=== PATIENT | female | born 1995 | race Caucasian/White ===

== ENCOUNTER 2019-01-07 15:08 | Emergency (ER) | payer BC ==
[2019-01-07 15:20] VITALS: BP 121/73
--- NOTE | 2019-01-07 15:29 | UC ---
Ear Complaint HPI - HPI Summary HPI Summary: patient reports 2-3 day history fullness in R ear and dizziness, especially when closes eyes - feels like spinning no headache or recent illness, no sinus pressure (except normal allergy symps) - History of Current Complaint Chief Complaint: UCEar Stated Complaint: EAR PAIN Time Seen by Provider: 01/07/19 15:20 Hx Obtained From: Patient Hx Last Menstrual Period: today ?: No Onset/Duration: Gradual Onset Pain Intensity: 0 Aggravating Factors: Other - head movement, closing eyes Alleviating Factors: Nothing Associated Signs/Symptoms: Negative: Discharge, Hearing Loss, Foreign Body Sensation, Trauma to Ear, URI Symptoms - Allergies/Home Medications Allergies/Adverse Reactions: Allergies Allergy/AdvReac Type Severity Reaction Status Date / Time tramadol Allergy Severe dizzy Verified 01/07/19 15:22 evironmental Allergy Intermediate congestion, Uncoded 01/07/19 15:22 post nasal drip Home Medications: Home Medications Control 1 tab PO DAILY 01/07/19 [History Confirmed 01/07/19] PMH/Surg Hx/FS Hx/Imm Hx Previously Healthy: Yes Psychological History: Depression - Surgical History Surgical History: None - Family History Known Family History: Positive: None - Social History Occupation: Employed Full-time Lives: With Family Alcohol Use: None Substance Use Type: None Smoking Status (MU): Never Smoked Tobacco Review of Systems All Other Systems Reviewed And Are Negative: Yes Constitutional: Positive: Negative. Negative: Fever, Chills Eyes: Positive: Negative. Negative: Blurred Vision, Diplopia ENT: Positive: Other - ear congestion Respiratory: Positive: Negative. Negative: Cough Cardiovascular: Positive: Negative. Negative: Chest Pain Neurological: Positive: Other - dizziness "room spinning" Psychological: Positive: Negative Is Patient Immunocompromised?: No Physical Exam Triage Information Reviewed: Yes Appearance: Well-Appearing, No Pain Distress, Well-Nourished Vital Signs: Initial Vital Signs Temp 98 F 01/07/19 15:15 Pulse 75 01/07/19 15:15 Resp 16 01/07/19 15:15 BP 121/73 01/07/19 15:15 Pulse Ox 99 01/07/19 15:15 Vital Signs Reviewed: Yes Eye Exam: Normal Eyes: Positive: Conjunctiva Clear ENT: Positive: Normal ENT inspection, Pharynx normal, TMs normal. Negative: Sinus tenderness Neck exam: Normal Neck: Positive: Supple, Nontender, No Lymphadenopathy Respiratory Exam: Normal Respiratory: Positive: Lungs clear Cardiovascular Exam: Normal Cardiovascular: Positive: RRR Neurological Exam: Normal Psychological Exam: Normal Skin Exam: Normal Ear Complaint Course/Dx - Differential Dx/Diagnosis Differential Diagnosis/HQI/PQRI: Cerumen Impaction, Foreign Body, Otitis Externa , Otitis Media, URI, Other - sinusitis, labyrinthitis Provider Diagnosis: Labyrinthitis of right ear Discharge ED - Sign-Out/Discharge Documenting (check all that apply): Patient Departure All imaging exams completed and their final reports reviewed: No Studies - Discharge Plan Condition: Good Disposition: HOME Prescriptions: Meclizine TAB* [Antivert 12.5 TAB*] 12.5 mg PO TID PRN #24 tab PRN Reason: Dizziness Patient Education Materials: Labyrinthitis (ED) Referrals: Jud Walden MD [Primary Care Provider] - 3 Days (if no better) Additional Instructions: drink plenty of fluids start meclizine and take as prescribed - it may cause drowsiness return if your symptoms worsen at anytime - Billing Disposition and Condition Condition: GOOD Disposition: Home
== END 2019-01-07 15:39 | disposition home or self-care (01) ==
LOC: UCEAST 15:08
DX: H83.01 Labyrinthitis, right ear (principal); F32.9 Major depressive disorder, single episode, unspecified
CPT/HCPCS: 99212; G0463

== ENCOUNTER 2019-03-21 07:35 | Day surgery (SDC) | payer BC ==
[~2019-03-21 07:35] MED LIST: Buffered Lidocaine 1% SYRIN* 1 ML/SYRINGE INTRADERM ONE; Dexamethasone TAB* 4 MG PO ONE; DiMENhydriNATE IV* 50 MG/ML VIAL IV PUSH PRN; Famotidine IV* 10 MG/ML 2 ML (20 mg) IV ONE; HYDROmorphone INJ1* 1 MG/ML SYRINGE IV PRN; Lactated Ringers 1000 ML Bag* 1,000 ML IV SCH; Naloxone* 0.4 MG/ML 1 ML VIAL IV PRN; Ondansetron ODT TAB* 4 MG PO ONE; PROCHLORPERAZINE INJ 5 MG/ML 2 ML VIAL IV PRN; Scopolamine 1.5 mg* PATCH TRANSDERM ONE; fentaNYL* 50 MCG/ML 2 ML VIAL (100 MCG VIAL) IV PRN; oxyCODONE/Acetamin 5/325 MG* TAB PO PRN
[2019-03-21] MEDS ORDERED: KETAMINE HCL* 50 MG/ML 10 ML VIAL ONE (08:22)
[2019-03-21] MEDS ORDERED: Midazolam* 1 MG/ML 5 ML VIAL (5 MG) ONE (08:22)
[2019-03-21] MEDS ORDERED: fentaNYL* 50 MCG/ML 2 ML VIAL (100 MCG VIAL) ONE (08:22)
[2019-03-21] MEDS ORDERED: Dexamethasone TAB* 4 MG ONE (09:12)
[2019-03-21] MEDS ORDERED: Ondansetron ODT TAB* 4 MG ONE (09:12)
[2019-03-21] MEDS ORDERED: Scopolamine 1.5 mg* PATCH ONE (09:13)
[2019-03-21] MEDS ORDERED: Famotidine IV* 10 MG/ML 2 ML (20 mg) ONE (09:13)
[2019-03-21] MEDS ORDERED: Bacitracin OINTMENT* 0.5% 0.5 oz TUBE ONE (09:37)
[2019-03-21] MEDS ORDERED: Lidocaine 2% w EPI 1:100,000* 20 ML MDV VIAL ONE (09:37)
[2019-03-21] MEDS ORDERED: Oxymetazoline 0.05% NASAL SPR* 15 ML BTL ONE (09:37)
[2019-03-21] MEDS ORDERED: PROCHLORPERAZINE INJ 5 MG/ML 2 ML VIAL ONE ×2 (10:11→10:44)
[2019-03-21] MEDS ORDERED: Propofol* 10 MG/ML 20 ML BTL ONE (10:11)
[2019-03-21] MEDS ORDERED: Lidocaine 2% PF * 5 ML VIAL ONE (10:12)
--- NOTE | 2019-03-21 13:13 | OP ---
OPERATIVE REPORT: DATE OF OPERATION: 03/21/19 DATE OF : [birth year] SURGEON: Hugh Ventura MD PRE-OP DIAGNOSIS: Deviated nasal septum with hypertrophy of turbinates with nasal dyspnea. POST-OP DIAGNOSIS: Deviated nasal septum with hypertrophy of turbinates with nasal dyspnea. OPERATIVE PROCEDURE: Septoplasty and submucosal resection of turbinates. BRIEF HISTORY: This 23-year-old female with history of nasal dyspnea, congestion nightly, not improv ing with topical nasal medication, elected for surgical management. DESCRIPTION OF PROCEDURE: The patient was brought to the operating room. General anesthesia was giv en, the patient was intubated with an LMA. Nose was decongested with Afrin-placed pledgets. Subsequ ently, 2% lidocaine with epinephrine was infiltrated on both sides of the septal mucosa and at inferi or turbinate mucosa. The right joe-transfixion incision was created. Mucoperichondrial flap was barb vated. The quadrangular cartilage was then elevated and disarticulated. The portion of vomer-ethmoi jesus complex where a large spur was noted was removed. The quadrangular cartilage was replaced in the midline and secured with multiple mattress sutures. Sriram splint was applied, which was secured wi th 2-0 silk. Then, we turned our attention to the inferior turbinates. Small incisions were made in the inferior turbinate mucosa. Submucosal elevation was carried out. A small amount of the inferior turbinate mucosa was removed. Submucosal tissue was removed. Cauterization was carried out in this area for hemostasis. Once this was done, small dressing was applied. The patient was awakened and sent to recovery room in stable condition. Instrument and sponge counts were correct. Blood loss wa s minimal. [id number]/[facility] #: [id number]
[2019-03-21 13:17] VITALS: BP 118/77
[2019-03-24] MEDS ORDERED: Scopolamine PATCH Remove* 1 NOTE MISC PATCH OFF ONE (06:00)
== END 2019-03-21 13:28 | disposition home or self-care (01) ==
LOC: OR 07:35
PROVIDERS: ATTEND Otolaryngology
DX: J34.2 Deviated nasal septum (principal); J34.3 Hypertrophy of nasal turbinates; J31.0 Chronic rhinitis
CPT/HCPCS: 81025; A9270-GY; J0780; J2250; J2704; J3010; J8540

== ENCOUNTER 2019-06-04 15:26 | Emergency (ER) | payer BC ==
[2019-06-04 15:43] VITALS: BP 114/72
--- NOTE | 2019-06-04 16:05 | UC ---
Abdominal Pain Female HPI - HPI Summary HPI Summary: 23 yo female with the onset of n/v/d 3 days ago no fever nausea/dry heaves/vomiting x 2 since onset diarrhea q 1-2 hours since onset wakes her at night works as OB nurse Last month travelled to [facility] no recent antibiotics or suspect foods She has been tolerating liquids and has good urine output - History of Current Complaint Chief Complaint: UCGI Stated Complaint: VOMITING Time Seen by Provider: 06/04/19 15:38 Hx Obtained From: Patient Hx Last Menstrual Period: today Onset/Duration: Sudden Onset, Lasting Days Timing: Constant Severity Initially: Mild Severity Currently: Mild Pain Intensity: 3 Pain Scale Used: 0-10 Numeric Location: Diffuse Character: Cramping Aggravating Factor(s): Food Alleviating Factor(s): Spontaneous Resolution Associated Signs and Symptoms: Positive: Nausea, Vomiting, Diarrhea. Negative: Diaphoresis, Fever, Cough, Chest Pain, Dizzy, Back Pain, Constipation, Blood in Stool, Urinary Symptoms, Decreased Appetite, Vaginal Bleeding, Vaginal Discharge Allergies/Adverse Reactions: Allergies Allergy/AdvReac Type Severity Reaction Status Date / Time tramadol Allergy Severe dizzy Verified 03/21/19 09:16 adhesive tape Allergy ITCHY Verified 03/21/19 09:16 evironmental Allergy Intermediate congestion, Uncoded 03/21/19 09:16 post nasal drip PMH/Surg Hx/FS Hx/Imm Hx Previously Healthy: Yes - Surgical History Surgical History: Yes Surgery Procedure, Year, and Place: BILATERAL HIP IMPINGEMENT/LABRAL TEARS. ADENDOIDS. WISDOM TEETH - Family History Known Family History: Positive: Hypertension, Non-Contributory - Social History Alcohol Use: None Substance Use Type: None Smoking Status (MU): Never Smoked Tobacco Have You Smoked in the Last Year: No Review of Systems All Other Systems Reviewed And Are Negative: Yes Constitutional: Positive: Fatigue Skin: Positive: Negative Eyes: Positive: Negative ENT: Positive: Negative Respiratory: Positive: Negative Cardiovascular: Positive: Negative Gastrointestinal: Positive: Abdominal Pain, Vomiting, Diarrhea, Nausea Motor: Positive: Negative Neurovascular: Positive: Negative Musculoskeletal: Positive: Negative Neurological/Mental Status: Positive: Negative Psychological: Positive: Negative Physical Exam Triage Information Reviewed: Yes Appearance: Well-Appearing, No Pain Distress, Well-Nourished Vital Signs: Initial Vital Signs Temp 98.5 F 06/04/19 15:31 Pulse 59 02/17/20 15:31 Resp 16 06/04/19 15:31 BP 114/72 06/04/19 15:31 Pulse Ox 100 06/04/19 15:31 Vital Signs Reviewed: Yes Eyes: Positive: Conjunctiva Clear ENT: Positive: Hearing grossly normal. Negative: Nasal congestion, Nasal drainage, Tonsillar swelling, Tonsillar exudate Neck: Positive: Supple, Nontender, No Lymphadenopathy Respiratory: Positive: Lungs clear, Normal breath sounds, No respiratory distress, No accessory muscle use Cardiovascular: Positive: RRR, No Murmur, Pulses Normal Abdomen Description: Positive: Nontender, No Organomegaly, Soft. Negative: CVA Tenderness (R), CVA Tenderness (L) Bowel Sounds: Positive: Present Musculoskeletal: Positive: ROM Intact, No Edema Neurological: Positive: Alert Psychological Exam: Normal Skin Exam: Normal Abd Pain Female Course/Dx - Differential Dx/Diagnosis Provider Diagnosis: Acute diarrhea Discharge ED - Sign-Out/Discharge Documenting (check all that apply): Patient Departure All imaging exams completed and their final reports reviewed: No Studies - Discharge Plan Condition: Stable Disposition: HOME Patient Education Materials: Acute Diarrhea (ED), Nutrition Tips for Relief of Diarrhea (ED) Forms: *Work Release Referrals: Jud Walden MD [Primary Care Provider] - 3 Days (if not better) Additional Instructions: you may take immodium AD stool studies pending recheck for fever or worsening symptoms don't return to work on 06/06 unless better see your PCP or return here if not improving - Billing Disposition and Condition Condition: STABLE Disposition: Home
== END 2019-06-04 16:32 | disposition home or self-care (01) ==
LOC: UCEAST 15:26
DX: R19.7 Diarrhea, unspecified (principal); R53.83 Other fatigue; R10.9 Unspecified abdominal pain; R11.2 Nausea with vomiting, unspecified; Z91.09 Other allergy status, other than to drugs and biological substances; Z88.5 Allergy status to narcotic agent
CPT/HCPCS: 87045; 87046; 87077; 87328; 87329; 87493; 87899; 99212; G0463